=== PATIENT | male | born 1940 | race Caucasian/White ===

== ENCOUNTER 2024-10-08 15:36 | Emergency (ER) | payer OTHER, SELFPAY ==
--- NOTE | 2024-10-08 15:30 | DI.US_ITS ---
Exam(s) US SCROTUM EXAM: US SCROTUM CLINICAL HISTORY: testicular pain. TECHNIQUE: Scrotal ultrasound performed using grayscale, color-flow and spectral Doppler analysis. COMPARISON: No exams were available for comparison FINDINGS: RIGHT TESTICLE: 3.8 x 2.3 x 2.5 cm Echogenicity: Normal. Contour: Smooth. Mass: None seen. Microlithiasis: None. Hydrocele: 4.1 x 2.5 x 2.2 cm largest fluid around epididymal head. 4 millimeter scrotal coreen noted . Varicocele: None. Hernia: No peristalsing bowel loop identified. Epididymis: 5 millimeter spermatocele in the head. Scrotum: Normal. LEFT TESTICLE: 3.9 x 1.9 x 2.2 cm Echogenicity: Normal. Contour: Smooth. Mass: None seen. Microlithiasis: None. Hydrocele: Small amount of fluid around epididymal head. Varicocele: Mild dilatation of vessels to 3.6 millimeters with Valsalva. Hernia: No peristalsing bowel loop identified. Epididymis: 2 4 millimeter spermatoceles in the head. Scrotum: Normal. DOPPLER: Color: Symmetric and uniform, no hyperemia. Duplex: Bilateral testicular arterial waveforms visualized. IMPRESSION: Normal appearing bilateral testicles. Bilateral spermatoceles in the epididymal heads. Right hydrocele with scrotal coreen. Mild left varicocele. DATA REPOSITORY:
[2024-10-08 15:40] VITALS: BP 136/75; PULSE 69; RESP 20; TEMP 36.4; O2SAT 95
--- NOTE | 2024-10-08 16:33 | ED.GENADUL_ITS ---
Discharge Plan Disposition Patient Disposition: Home Condition: Stable Discharge Details Clinical Impression: Pain in scrotum Primary Care Provider: Unknown,Unknown ED Provider: Chelsey Foster Home Meds and New Rx's Prescriptions: No Action lisinopril 40 mg tablet 40 mg PO DAILY Discharge Instructions Additional Instructions: Try scrotal support or Motrin and Tylenol as needed for pain or discomfort. At this time there is no evidence of an acute abnormality on your ultrasound and no signs of infection in your urine. You have been referred to urology for follow- up if you are having persistent symptoms. Discharge Data Discharge Date/Time-TO BE ENTERED AT DEPARTURE: 10/08/24 17:15 HPI General Date/Time Provider Initiated Documentation: 10/08/24 15:42 . Limitations to Documentation: no limitations . Information obtained by: patient . HPI Narrative: 84-year-old gentleman with past medical history of hypertension presents for evaluation of right-sided scrotal pain. Pain has been ongoing for the last 2 months. It is localized to his right side scrotum and he says radiates towards his prostate. It is not associated with any swelling or redness. It is not associated with any difficulty urinating, burning with urination or decrease in urination. He denies any trauma. Related Data Home Medications ?Medication ?Instructions ?Recorded ?Confirmed lisinopril 40 mg tablet 40 mg PO DAILY 10/08/24 10/08/24 Allergies Allergy/AdvReac Type Severity Reaction Status Date / Time cat dander Allergy Intermediate Other (See Verified 10/08/24 15:44 Comment) General Stated Complaint: Male Reproductive Problem MIKI: 3 Exam Narrative Exam Narrative: Review of Systems: All systems reviewed & are unremarkable except as noted in HPI and below Well-developed, no acute distress NCAT Unlabored respiratory effort Nondistended abdomen , soft nontender Penis normal, scrotum without enlargement or erythema, no overlying lesions, no appreciable testicular mass Course Vital Signs Vital signs: Vital Signs Temperature 36.4 C L 10/08/24 15:40 Pulse 69 10/08/24 15:40 Respiratory Rate 20 10/08/24 15:40 Blood Pressure 136/75 10/08/24 15:40 Pulse Oximetry 95 10/08/24 15:40 Temperature 36.4 C L 10/08/24 15:40 Pulse 69 10/08/24 15:40 Respiratory Rate 20 10/08/24 15:40 Blood Pressure 136/75 10/08/24 15:40 Blood Pressure Position Sitting 10/08/24 15:40 Pulse Oximetry 95 10/08/24 15:40 Oxygen Delivery Method Room Air 10/08/24 15:40 Oxygen Flow Rate 0 10/08/24 15:40 Medical Decision Making Emergent evaluation of right-sided testicular pain. Symptoms have been ongoing for like 2 months. So I doubt testicular torsion. The patient's testicular exam is benign do not identify any signs of infectious etiology traumatic injury or other cause for his pain. At this time we will get ultrasound to evaluate as well as urinalysis. Ultrasound reviewed the radiology report did not note any acute abnormality that might be the cause of the patient's pain. Urinalysis did not reveal an infection. On reassessment of the patient, he now mentions that he does have a history of prostate cancer for which she has received radiation therapy. He is not currently on radiation therapy but he is wondering if this might have something to do with this pain. I suspect that it probably does. I advised him to follow-up with his oncologist at [facility] the patient will also be referred to urology here for any ongoing symptoms. Quality:SDOH Health Related Social Needs: No Data to Display PFSH All Active Problems (Updated 10/08/24 @ 16:55 by Chelsey Foster MD) Pain in scrotum (Acute) Social History Smoking risk assessment performed?: No PAWSS Have you Been Recently Intoxicated or Drunk Within the Last 30 days?: No Have you Ever Experienced Previous Episodes of Alcohol Withdrawal?: No Have you ever Experienced Withdrawal Seizures?: No Have you ever Experienced Delirium Tremens(DT)s?: No Have you ever undergone Alcohol Rehabilitation Treatment (i.e, inpt ot outpatient treatment programs)?: No Have you ever Experienced Blackouts?: No Have you ever Combined Alcohol with other Downers within the last 90 days?: No Have you ever Combined Alcohol with any other Substance of Abuse during the last 90 days?: No Positive Blood Alcohol level on Presentation? [PCS.BAL]: No Evidence of Increased Autonomic Activity (i.e. HR>120, tremor, sweating, agitation, nausea)?: No Result: 0
[2024-10-08 16:41] LABS: Bilirubin Negative (Negative); Blood Negative (Negative); Clarity Clear (Clear); Glucose Negative (Negative); Ketones Trace mg/dL (Negative); Leukocyte Esterase Negative (Negative); Nitrite Negative (Negative); Specific Gravity >= 1.030 (1.005-1.025); Urobilinogen 0.2 mg/dL (Up to 0.2)
[2024-10-08 17:17] VITALS: BP 130/60; PULSE 70; RESP 17; TEMP 36.2; O2SAT 96
--- NOTE | 2024-10-10 06:46 | NUR.NOTE ---
Access chart to determine the insurance of the patient and any contact information. No contact information for patient but on his HIPPA there is a number for his daughter. Nursing Note:
== END 2024-10-08 17:15 | disposition home or self-care (01) ==
LOC: ER 17:51
PROVIDERS: Emergency Provider Emergency Medicine
DX: N50.811 Right testicular pain (principal); I10 Essential (primary) hypertension; Z85.46 Personal history of malignant neoplasm of prostate; Z92.3 Personal history of irradiation
CPT/HCPCS: 99284; 76870; 81003; 99283